=== PATIENT | male | born 1935 | race Hispanic/Latino ===

== ENCOUNTER → 2022-04-13 | Outpatient (CLI) | payer MEDICARE, OTHER ==
[~2022-04-13] MED LIST: LIDOCAINE HCL 4% LTA SOL 4 ML VIAL ONE
== END | disposition home or self-care (01) ==
LOC: WHH 11:23
PROVIDERS: ATTEND Family Medicine
DX: L89.613 Pressure ulcer of right heel, stage 3 (principal); L89.623 Pressure ulcer of left heel, stage 3; M10.00 Idiopathic gout, unspecified site; E03.9 Hypothyroidism, unspecified; Z85.07 Personal history of malignant neoplasm of pancreas; Z90.49 Acquired absence of other specified parts of digestive tract
CPT/HCPCS: 11042; A6209; A4450

== ENCOUNTER → 2022-04-20 | Outpatient (CLI) | payer MEDICARE, OTHER | END | disposition home or self-care (01) | LOC: WHH 09:41 | PROVIDERS: ATTEND Family Medicine | DX: L89.613 Pressure ulcer of right heel, stage 3 (principal); L89.623 Pressure ulcer of left heel, stage 3; L89.152 Pressure ulcer of sacral region, stage 2; L89.322 Pressure ulcer of left buttock, stage 2; M10.00 Idiopathic gout, unspecified site; E03.9 Hypothyroidism, unspecified; Z85.07 Personal history of malignant neoplasm of pancreas; Z90.49 Acquired absence of other specified parts of digestive tract | CPT/HCPCS: 11042; A6209 ==